=== PATIENT | female | born 1990 | race Caucasian/White ===

== ENCOUNTER 2025-03-06 04:54 | Emergency (ER) | payer BC, SELFPAY ==
[2025-03-06 05:01] VITALS: BP 135/79; PULSE 79; TEMP 36.7; O2SAT 96; BMI 31.5
--- NOTE | 2025-03-06 05:17 | US_ITS ---
The [address] [address] Patient Name: JORDEN PEÑA MRN: [id number] date: 1990 Sex: F Assigned Patient Location: ED.MAIN Current Patient Location: ED.MAIN Accession/Order Number: [id number] Exam Date: 03/06/2025 07:00 Report Date: 03/06/2025 09:01 At the request of: COSME CARROLL MD Procedure: US right upper quadrant EXAMINATION TYPE: US right upper quadrant DATE OF EXAM ORDERED: 03/06/2025 7:24 AM HISTORY: RUQ pain COMPARISON: NONE TECHNIQUE: Realtime imaging limited to the right upper quadrant was performed. FINDINGS: The gallbladder appears within normal limits without evidence of cholelithiasis. The gallbladder wall measures 2 mm in thickness. The common bile but measures 4 mm in diameter. No intrahepatic or extrahepatic biliary dilatation is seen. The liver is normal in echo reflectivity. Partial visualization of the right kidney reveals no gross hydronephrosis. Partial visualization of the pancreas reveals no abnormality. US/US right upper quadrant IMPRESSION: Normal right upper quadrant ultrasound. Impression dictated by: Jenaro Germain M.D. 03/06/2025 9:01 AM Dictation Location: [place] [address] Electronically authenticated by: [id number] Y Date: 03/06/2025 09:01
--- NOTE | 2025-03-06 05:18 | ED_ITS ---
HPI HPI - General Adult General Chief complaint: Abdominal Pain Stated complaint: ABDOMINAL PAIN, NAUSEA Time Seen by Provider: 03/06/25 05:12 Source: patient Mode of arrival: walk-in Limitations: no limitations History of Present Illness HPI narrative: 34-year-old female presents to the emergency department for abdominal pain. It is in the middle part of her abdomen and in the right upper quadrant. Started tonight and she was also nauseous and she took some Zofran at home and she felt better. She continues to have the pain. She has never had issues like this before. No trauma or fever. Related Data Home Medications ?Medication ?Instructions ?Recorded ?Confirmed bupropion HCl 150 mg 24 hr tablet, 150 mg PO DAILY 08/2603/06/25 extended release ondansetron HCl 8 mg tablet 8 mg PO Q12H PRN nausea an d 03/06/25 03/06/25 vomiting Allergies Allergy/AdvReac Type Severity Reaction Status Date / Time No Known Drug Allergies Allergy Verified 03/06/25 05:06 Opioid HPI Opioid Management Most Recent Opioid Data: Last Pain Scale 6 Today, 05:22 Last ED Pain Assessment Today, 05:22 Review of Systems ROS Narrative A ten point review of systems is negative except as noted above. PFSH PFSH Social History Little interest or pleasure in doing things: not at all Feeling down, depressed, or hopeless: not at all Exam Narrative Exam Narrative: Nurses note and vital signs reviewed and patient is not hypoxic. General:The patient appears mildly uncomfortable. Skin:Warm, dry, no pallor noted.There is no rash noted. Head:Normocephalic, atraumatic Eye: Normal conjunctiva, no drainage Ears, Nose, Mouth, and Throat: oral mucosa is moist. Nares patent. Cardiovascular:Regular Rate and Rhythm Respiratory:Patient is in no distress, no accessory muscle use, lungs are clear to auscultation, no wheezing, rales or rhonchi Back:non-tender GI: Tender in the mid abdomen and right upper quadrant without mass or distention. Musculoskeletal: The patient has no evidence of calf tenderness, no pitting edema, symmetrical pulses noted bilaterally Neurological:A&O, normal speech Psychiatric:Cooperative Constitutional Vital Signs, click to edit/add: Last Vital Signs Temp 98.1 F 03/06/25 05:01 Pulse 79 03/06/25 05:01 Resp 16 03/06/25 05:01 BP 135/79 03/06/25 05:01 Pulse Ox 96 03/06/25 05:01 O2 Del Method Room Air 03/06/25 05:01 Course Vital Signs Vital signs: Vital Signs Temperature 98.1 F 03/06/25 05:01 Pulse Rate 79 03/06/25 05:01 Respiratory Rate 16 03/06/25 05:01 Blood Pressure 135/79 03/06/25 05:01 Pulse Oximetry 96 03/06/25 05:01 Oxygen Delivery Method Room Air 03/06/25 05:01 Temperature 98.1 F 03/06/25 05:01 Pulse Rate 79 03/06/25 05:01 Respiratory Rate 16 03/06/25 05:01 Blood Pressure 135/79 03/06/25 05:01 Pulse Oximetry 96 03/06/25 05:01 Oxygen Delivery Method Room Air 03/06/25 05:01 Medical Decision Making MDM Narrative Medical decision making narrative: Blood work is essentially normal. Gallbladder ultrasound is pending and the patient is signed out to Dr. Peraza at change of shift. Differential Diagnosis Differential Diagnosis: Constipation, gallbladder disease, pancreatitis Lab Data Lab results reviewed: Yes I reviewed the patient's lab results Labs: Lab Results 03/06/25 Range/Units 05:15 WBC 3.6 L (4.0-11.0) 10^3/uL RBC 4.48 (4.20-5.40) 10^6/uL Hgb 11.8 L (12.0-16.0) g/dL Hct 35.6 L (36.0-48.0) % MCV 79.5 L (81.0-99.0) fL MCH 26.3 L (26.7-34.0) pg MCHC 33.1 (29.9-35.2) g/dL RDW 15.1 H (11.0-15.0) % Plt Count 200 (150-450) 10^3/uL MPV 10.2 (9.5-13.5) fL Neut % (Auto) 49.1 (43.0-75.0) % Lymph % (Auto) 42.2 (20.5-60.0) % [place] % (Auto) 6.1 (1.7-12.0) % Eos % (Auto) 1.7 (0.9-7.0) % Baso % (Auto) 0.6 (0.2-2.0) % Neut # (Auto) 1.8 (1.4-6.5) 10^3/uL Lymph # (Auto) 1.5 (1.2-3.8) 10^3/uL [place] # (Auto) 0.2 L (0.3-0.8) 10^3/uL Eos # (Auto) 0.1 (0.0-0.7) 10^3/uL Baso # (Auto) 0.0 (0.0-0.1) 10^3/uL Abs Immat Gran (auto) 0.01 (0.00-0.03) 10^3/uL Imm/Tot Granulo (auto) 0.3 (0.0-0.5) % Sodium 141 (136-145) mmol/L Potassium 3.8 (3.5-5.1) mmol/L Chloride 103 (98-107) mmol/L Carbon Dioxide 28.1 (21.0-32.0) mmol/L Anion Gap 13.7 BUN 13.0 (7.0-18.0) mg/dL Creatinine 0.50 L (0.55-1.02) mg/dL Est GFR ( Amer) >60 (>=60 mL/min/1.73m^2) Est GFR (Non-Af Amer) >60 (>=60 mL/min/1.73m^2) BUN/Creatinine Ratio 26.0 Glucose 93 (74-106) mg/dL Calcium 8.6 (8.5-10.1) mg/dL Total Bilirubin 0.6 (0.2-1.0) mg/dL Direct Bilirubin 0.1 (0.0-0.2) mg/dL AST 13 L (15-37) U/L ALT 17 (14-59) U/L Alkaline Phosphatase 45 L (46-116) U/L Total Protein 7.0 (6.4-8.2) g/dL Albumin 3.6 (3.4-5.0) g/dL Globulin 3.4 g/dL Albumin/Globulin Ratio 1.1 Amylase 29 (25-115) U/L Lipase 26.0 (16.0-77.0) U/L Serum HCG, Qual Negative (NEGATIVE) Discharge Plan Discharge Patient Disposition: Still a Patient
[2025-03-06 05:28] LABS: Hematocrit 35.6 % (36.0-48.0); Hemoglobin 11.8 g/dL (12.0-16.0); Immature Granulocytes Abs Auto 0.01 10^3/uL (0.00-0.03); Immature Granulocytes Pct Auto 0.3 % (0.0-0.5); Lymphocytes Absolute Auto 1.5 10^3/uL (1.2-3.8); Mean Corpuscular HGB Conc 33.1 g/dL (29.9-35.2); Mean Corpuscular Hemoglobin 26.3 pg (26.7-34.0); Mean Corpuscular Volume 79.5 fL (81.0-99.0); Platelet Count 200 10^3/uL (150-450); Red Blood Count 4.48 10^6/uL (4.20-5.40); White Blood Count 3.6 10^3/uL (4.0-11.0)
[2025-03-06 05:43] LABS: Alanine Aminotransferase 17 U/L (14-59); Albumin Globulin Ratio 1.1; Albumin Level 3.6 g/dL (3.4-5.0); Alkaline Phosphatase 45 U/L (46-116); Amylase 29 U/L (25-115); Anion Gap 13.7; Aspartate Amino Transferase 13 U/L (15-37); Blood Urea Nitrogen 13.0 mg/dL (7.0-18.0); Calcium 8.6 mg/dL (8.5-10.1); Carbon Dioxide 28.1 mmol/L (21.0-32.0); Chloride 103 mmol/L (98-107); Estimated GFR (African America >60 (>=60 mL/min/1.73m^2); Estimated GFR (Non-African Ame >60 (>=60 mL/min/1.73m^2); Globulin 3.4 g/dL; Glucose 93 mg/dL (74-106); Lipase 26.0 U/L (16.0-77.0); Potassium 3.8 mmol/L (3.5-5.1); Sodium 141 mmol/L (136-145); Total Protein 7.0 g/dL (6.4-8.2)
[2025-03-06 08:54] VITALS: BP 138/82; PULSE 79; O2SAT 100
== END 2025-03-06 09:22 | disposition home or self-care (01) ==
PROVIDERS: Emergency Provider Emergency Medicine
DX: R10.9 Unspecified abdominal pain (principal)
CPT/HCPCS: 36415; 76705; 80048; 80076; 81001; 82150; 83690; 84703; 85025; 96374; 99284; J2405